=== PATIENT | female | born 1970 | race African-American/Black ===

== ENCOUNTER 2016-10-06 17:58 | Emergency (ER) | payer OTHER ==
[~2016-10-06] VITALS: Ht 162.6 cm; Wt 113.6 kg
[~2016-10-06 17:58] MED LIST: HYDR-2766 PO; IBUP200T43 PO; LOSA1TAB17 PO
[2016-10-06 18:12] VITALS: BP 143/76
[2016-10-06] MEDS ORDERED: 0.9 % SODIUM CHLORIDE 10 ML DISP.SYRIN. IV PRN (18:30)
--- NOTE | 2016-10-06 18:37 | EKG ---
[address] [address] Test Date: 2016-10-06 Test Time: 18:34:01 Pat Name: JAYDON REID Department: Room: Gender: F [employer]: : 1970 Requested By: ALEXANDRA BARKER Order Number: [id number] Reading MD: Orville Zuñiga Measurements Intervals [place] Rate: 105 P: 46 [place]: 156 QRS: 13 QRSD: 76 T: 5 QT: 334 QTc: 445 Interpretive Statements SINUS TACHYCARDIA Electronically Signed On 10-15-2016 8:46:16 CDT by Orville Zuñiga
[2016-10-06] MEDS ORDERED: IV NORMAL SALINE 1,000ML 1,000 ML IV SCH (18:45)
[2016-10-06] MEDS ORDERED: ASPIRIN 81 MG TAB.CHEW PO ONE (18:45)
[2016-10-06] MEDS ORDERED: IOHEXOL 300 MG/ML 75 ML VIAL. IV ONE (19:15)
[2016-10-06] MEDS ORDERED: CONTRAST GIVEN MC PRN (19:15)
[2016-10-06 19:29] LABS: BASO % 0 % (0-3); EOS % 0 % (0-3); HEMOGLOBIN 7.3 g/dL (12.0-15.5); LYMPH # 0.7 x10^3/uL (1.0-4.8); LYMPH % 6 % (24-48); MEAN CORPUSCULAR HEMOGLOBIN 32 pg (25-35); MEAN CORPUSCULAR HGB CONC 35 g/dL (31-37); MEAN CORPUSCULAR VOLUME 92 fL (79-100); MONO % 8 % (0-9); NEUT # 10.2 x10^3uL (1.8-7.7); NEUT % 86 % (31-73); PLATELET COUNT 222 x10^3/uL (140-400); RED BLOOD COUNT 2.28 x10^6/uL (3.50-5.40); WHITE BLOOD COUNT 11.9 x10^3/uL (4.0-11.0)
[2016-10-06 19:51] LABS: ALBUMIN 2.5 g/dL (3.4-5.0); ALBUMIN/GLOBULIN RATIO 0.6 (1.0-1.7); ALK PHOS 104 U/L (46-116); ALT (SGPT) 17 U/L (14-59); ANION GAP 8 (6-14); AST (SGOT) 11 U/L (15-37); BLOOD UREA NITROGEN 20 mg/dL (7-20); BUN/CREATININE RATIO 13 (6-20); CALCIUM 8.3 mg/dL (8.5-10.1); CARBON DIOXIDE 31 mmol/L (21-32); CHLORIDE 90 mmol/L (98-107); CREATINE KINASE 16 U/L (26-192); CREATININE 1.5 mg/dL (0.6-1.0); GFR 44.8; GLUCOSE 92 mg/dL (70-99); LIPASE 75 U/L (73-393); MAGNESIUM 1.1 mg/dL (1.8-2.4); POTASSIUM 3.8 mmol/L (3.5-5.1); SODIUM 129 mmol/L (136-145); TOTAL BILIRUBIN 0.3 mg/dL (0.2-1.0); TOTAL PROTEIN 6.7 g/dL (6.4-8.2)
--- NOTE | 2016-10-06 20:08 | PHYS DOC ---
Past History Past Medical History: Cancer Past Surgical History: Cancer Surgery, Other Alcohol Use: None Drug Use: None Adult General Chief Complaint Chief Complaint: MULTIPLE COMPLAINTS HPI HPI He is a pleasant 46-year-old female with history of skin cancer diagnosed several years ago requiring local excision to her right foot in both June and July of this year. She is undergone chemotherapy and radiation therapy last dose September 28, 2016 she presents today to the emergency department secondary to shortness of breath. Shortness of breath she admits was short- lived lasting. Minutes about 2 hours prior to arrival that has now resolved at this time. Patient has also noted pain in her right extremity which is chronic in nature for her for which she takes MS Jerald she admits this is secondary to the lymph node removal causing chronic lymph edema in her lower leg. She's had no change in her medications she has had no injuries no increased swelling she was worried shortness of breath or something more sinister with her heart. She' s never had heart conditions she is not being treated for any high blood pressure diabetes or other risk factors for CAD. She denies any fevers, chills, missed medications, increase salt intake travel or trauma. She lives at home with family she normally gets her care at [facility] recent CT scan of her chest complete last week. Results from CT scan reviewed by me demonstrate no significant pulmonary medicine. Review of Systems Review of Systems Constitutional: Denies fever or chills [] Eyes: Denies change in visual acuity, redness, or eye pain [] HENT: Denies nasal congestion or sore throat [] Respiratory: Denies cough or shortness of breath [] Cardiovascular: No additional information not addressed in HPI [] GI: Denies abdominal pain, nausea, vomiting, bloody stools or diarrhea [] : Denies dysuria or hematuria [] Musculoskeletal: Denies back pain or joint pain [] Integument: Denies rash or skin lesions [] Neurologic: Denies headache, focal weakness or sensory changes [] Endocrine: Denies polyuria or polydipsia [] Current Medications Current Medications Current Medications Medications (Trade) Dose Ordered Sig/Jennie Start Time Stop Time Status Last Admin Dose Admin Aspirin (Children'S Aspirin) 324 mg 1X ONCE 10/06/16 18:45 10/06/16 18:46 DC Info (Do NOT chart on this entry -- for MONITORING) 1 each PRN DAILY PRN 10/06/16 19:15 10/08/16 19:14 Iohexol (Omnipaque 300 Mg/ml) 75 ml 1X ONCE 10/06/16 19:15 10/06/16 19:16 DC Sodium Chloride (Normal Saline Flush) 10 ml QSHIFT PRN 10/06/16 18:30 Allergies Allergies Allergies Coded Allergies Type Severity Reaction Last Updated Verified amoxicillin Allergy Intermediate 08/03/16 Yes clavulanic acid Allergy Intermediate 08/03/16 Yes Physical Exam Physical Exam Constitutional: Well developed, well nourished, no acute distress, non-toxic appearance. [] HENT: Normocephalic, atraumatic, bilateral external ears normal, oropharynx moist, no oral exudates, nose normal. [] Eyes: PERRLA, EOMI, conjunctiva normal, no discharge. [] Neck: Normal range of motion, no tenderness, supple, no stridor. [] Cardiovascular:Heart rate regular rhythm, no murmur [] Lungs & Thorax: Bilateral breath sounds clear to auscultation [] Abdomen: Bowel sounds normal, soft, no tenderness, no masses, no pulsatile masses. [] Skin: Warm, dry, no erythema, no rash. [] Back: No tenderness, no CVA tenderness. [] Extremities: No tenderness, no cyanosis, no clubbing, ROM intact, no edema. [] Neurologic: Alert and oriented X 3, normal motor function, normal sensory function, no focal deficits noted. [] Psychologic: Affect normal, judgement normal, mood normal. [] Current Patient Data Vital Signs Vital Signs Date Time Temp Pulse Resp B/P (MAP) Pulse Ox O2 Delivery O2 Flow Rate FiO2 10/06/16 18:12 98.8 93 20 97 Room Air Lab Results Laboratory Tests Test 10/06/16 19:16 White Blood Count 11.9 x10^3/uL (4.0-11.0) H Red Blood Count 2.28 x10^6/uL (3.50-5.40) L Hemoglobin 7.3 g/dL (12.0-15.5) L Hematocrit 21.0 % (36.0-47.0) L Mean Corpuscular Volume 92 fL (79-100) Mean Corpuscular Hemoglobin 32 pg (25-35) Mean Corpuscular Hemoglobin Concent 35 g/dL (31-37) Red Cell Distribution Width 20.0 % (11.5-14.5) H Platelet Count 222 x10^3/uL (140-400) Neutrophils (%) (Auto) 86 % (31-73) H Lymphocytes (%) (Auto) 6 % (24-48) L Monocytes (%) (Auto) 8 % (0-9) Eosinophils (%) (Auto) 0 % (0-3) Basophils (%) (Auto) 0 % (0-3) Neutrophils # (Auto) 10.2 x10^3uL (1.8-7.7) H Lymphocytes # (Auto) 0.7 x10^3/uL (1.0-4.8) L Monocytes # (Auto) 1.0 x10^3/uL (0.0-1.1) Eosinophils # (Auto) 0.0 x10^3/uL (0.0-0.7) Basophils # (Auto) 0.0 x10^3/uL (0.0-0.2) Platelet Estimate Pending Troponin I Quantitative < 0.017 ng/mL (0-0.055) EKG EKG [] Radiology/Procedures Radiology/Procedures Chest x-ray completed 18310/06/[address] Barker demonstrates cardiac shadow upper limits of normal Port-A-Cath noted with ending in the right atrium no evidence of any infiltrates noted sided pericardial effusion as Cardec silhouette is within normal limits no evidence of pleural effusion notes of infiltrate. otherwise unchanged chest x-ray from February 2016. [] Course & Med Decision Making Course & Med Decision Making Pertinent Labs and Imaging studies reviewed. (See chart for details) [A she is a pleasant 46-year-old female with history anxiety shortness of breath with a history of cancer on appropriate anticoagulation therapy. She admits to numbness to medication doses which is worried about her heart. EKG timed 6:34 PM date 10/06/[address] Barker demonstrates sinus tachycardia with a heart rate of [address] segment elevation or T-wave changes consistent with acute coronary ischemia no S1Q3 T3 patient's EKG otherwise unremarkable. Patient daughter and I talked about possible admission to the hospital secondary to duration of symptoms although she's only had 2 hours of time between her shortness of breath and this. It's not adequate to completely rule out the injury of the heart. She likely has some heart disease but at this point I cannot tell her that she doesn't have heart injury. She would prefer to go home and follow up with her primary care doctor. At this point discussed her labs disposition and reasons to return. Diagnoses include cute coronary syndrome, pneumonia, pleural effusion, pericardial effusion, pulmonary infarct, chest wall fracture, metastatic bone lesions, hyper calcium, pneumothorax, mediastinitis, pneumonitis, Impression dyspnea of unclear etiology now resolved disposition and follow-up, primary care doctor Saturday morning return for any increasing symptoms short of breath chest pain. Family and I discussed results and understand limitation of not completing her workup here in the emergency department] patient will take risk as she feels markedly more comfortable with her symptoms resolved. Again pulmonalis was considered patient was very reluctant to have PowerPort injected again with contrast as she is on a less and reported a CAT scan negative last week at [facility] but I was not able to define patient's x-ray although the patient assured me that this was completed. I reviewed all vital signs, nursing notes prior to disposition. Dragon Disclaimer Dragon Disclaimer This chart was dictated in whole or in part using Voice Recognition software in a busy, high-work load, and often noisy Emergency Department environment. It may contain unintended and wholly unrecognized errors or omissions. Departure Departure: Impression: Primary Impression: Dyspnea Additional Impression: Chronic pain Disposition: HOME, SELF-CARE Condition: STABLE Referrals: KONG LEAVITT APRN (PCP) Patient Instructions: Lymphedema, Shortness of Breath Additional Instructions: Please return immediately for any new or increasing symptoms, or if you like to finish her workup here at [facility]. Please follow up with her primary care doctor on Saturday for continued evaluation and management of your skin cancer. Please return if there is anything as we can help with or new symptoms need to be evaluated. Problem Qualifiers ALEXANDRA BARKER MD October 06, 2016 20:08
[2016-10-06 23:03] LABS: % LYMPHS 3 % (24-48); % MONOS 6 % (0-10); % MYELOS 5 % (0-0); % SEGS 86 % (35-66)
[2016-10-06 23:04] LABS: TOXIC GRANULATION PRESENT
[2016-10-06 23:05] LABS: PLT ESTIMATE ADEQUATE (ADEQUATE)
[2016-10-06 23:07] LABS: ANISOCYTOSIS SLIGHT
[2016-10-06 23:08] LABS: POLYCHROMASIA PRESENT
--- NOTE | 2016-10-07 08:59 | RAD ---
Indication chest pain and shortness of breath. A single view of the chest was obtained and is compared to an examination 02/13/2016. The heart and pulmonary vessels are unremarkable. A focal infiltrate is not seen. Significant pleural fluid is not present. Right Port-A-Cath is noted. IMPRESSION: No acute or focal process seen in the chest
== END 2016-10-06 20:10 | disposition home or self-care (01) ==
LOC: ER 17:58
DX: R06.00 Dyspnea, unspecified (principal); G89.29 Other chronic pain; M79.661 Pain in right lower leg; Z88.1 Allergy status to other antibiotic agents
CPT/HCPCS: 36415; 71010; 80053; 82553; 83690; 83735; 83880; 84443; 84484; 85007; 85027; 93005; 99285-25

== ENCOUNTER 2016-11-08 21:02 | Emergency (ER) | payer MEDICARE, OTHER ==
[2016-11-08] MEDS ORDERED: IV NORMAL SALINE 1,000ML 1,000 ML IV ONE (21:45)
[2016-11-08] MEDS ORDERED: fentaNYL PF 100 MCG/2 ML VIAL IV ONE (21:45)
[2016-11-08] MEDS ORDERED: IOHEXOL 300 MG/ML 75 ML VIAL. IV ONE (22:00)
[2016-11-08 22:05] LABS: BASO # 0.1 x10^3/uL (0.0-0.2); BASO % 0 % (0-3); EOS % 0 % (0-3); HEMATOCRIT 26.5 % (36.0-47.0); LYMPH # 0.9 x10^3/uL (1.0-4.8); LYMPH % 5 % (24-48); MEAN CORPUSCULAR HEMOGLOBIN 32 pg (25-35); MEAN CORPUSCULAR HGB CONC 34 g/dL (31-37); MEAN CORPUSCULAR VOLUME 93 fL (79-100); MONO # 1.3 x10^3/uL (0.0-1.1); MONO % 8 % (0-9); NEUT % 87 % (31-73); PLATELET COUNT 325 x10^3/uL (140-400); RED BLOOD COUNT 2.86 x10^6/uL (3.50-5.40); RED CELL DISTRIBUTION WIDTH 20.2 % (11.5-14.5); WHITE BLOOD COUNT 16.2 x10^3/uL (4.0-11.0)
[2016-11-08] MEDS ORDERED: ONDANSETRON PF 4 MG/2 ML VIAL. ONE (22:17)
[2016-11-08 22:22] LABS: ALBUMIN 2.2 g/dL (3.4-5.0); ALBUMIN/GLOBULIN RATIO 0.5 (1.0-1.7); CREATININE 1.8 mg/dL (0.6-1.0); GFR 36.3; TOTAL BILIRUBIN 0.6 mg/dL (0.2-1.0)
[2016-11-08 22:24] LABS: CALCIUM 12.9 mg/dL (8.5-10.1)
[2016-11-08 22:30] LABS: % BANDS 19 % (0-9); % LYMPHS 3 % (24-48); % MONOS 4 % (0-10); % MYELOS 4 % (0-0); % SEGS 70 % (35-66)
[2016-11-08 22:31] LABS: PLT ESTIMATE ADEQUATE (ADEQUATE)
[2016-11-08 22:34] LABS: ANISOCYTOSIS SLIGHT
[2016-11-08 22:35] LABS: POLYCHROMASIA PRESENT
[2016-11-08] MEDS ORDERED: ONDANSETRON PF 4 MG/2 ML VIAL. IV ONE (23:15)
[2016-11-08] MEDS ORDERED: HYDROmorphone PF 1 MG/ML DISP.SYRIN ONE (23:24)
[2016-11-08] MEDS ORDERED: HYDROmorphone PF 1 MG/ML DISP.SYRIN IV ONE (23:30)
--- NOTE | 2016-11-09 00:02 | PHYS DOC ---
Past History Past Medical History: Cancer Past Surgical History: Cancer Surgery, Other Alcohol Use: None Drug Use: None Adult General Chief Complaint Chief Complaint: ABDOMINAL PAIN HPI HPI Patient is a 46 year old F who presents with abdominal pain for the past day. Patient states that she has nausea/vomiting and is vomiting feces. She has a history of abdominal cancer with lymph node removal. She denies any fevers. Patient states she is not had a bowel movement in over 2 weeks. She denies any chest pain or shortness of breath. Patient has no other complaints. Pertinent exam findings: Generalized abdominal tenderness palpation with no focal rebound tenderness, decreased bowel sounds in all 4 quadrants ED course: Patient was seen and examined CBC, CMP, UA, lipase, CT scan abdomen and pelvis, 1 L normal saline, pain medication were ordered 0127: Updated patient on CT results of a small bowel obstruction and a right psoas muscle abscess and the need to place NG tube and place her on antibiotics and admitted to [facility] 0130: Discussed CC/HP/PMH with Dr. Escobar and recommends admission and NG tube placement wants to be on consult 0139: Discussed CC/HP/PMH with Dr. Lee and recommends admit 0144: 2 g of vancomycin and 1 g of ertapenem were started in the emergency room and blood cultures were drawn prior to the initiation of antibiotics [] Pertinent results: Lactic acid 1.[address] abdomen and pelvis with contrast IMPRESSION: New 2.8 x 2.6 cm soft tissue process posteriorly at the right lung base which may represent some consolidated infiltrate however small mass cannot be excluded. Abnormal heterogeneous soft tissue density involving the distal right psoas muscle and iliopsoas muscle possibly representing abscess but progressed from previous examination now encroaching on the right ureter causing obstructive uropathy at the right kidney. Small bowel dilatation with obstruction down to the distal ileum. Electronically signed by: Brooke Shaw MD (11/09/2016 1:16 AM) MDM: After reviewing the chart, CC/HPI/PMH, physical exam, [lab results], [ radiological results], I believe the patient has acute small bowel obstruction and a right psoas muscle abscess. An NG tube placed and the patient be placed on antibiotics and transferred to [facility] for admission to the hospitalist with surgery on consult. Review of Systems Review of Systems GEN: Denies fevers, chills, sweats HEENT: Denies blurred vision, sore throat CV: Denies chest pain RESP: Denies shortness of air, cough GI: Abdominal pain NEURO: Denies confusion, dizziness MSK: Denies weakness, joint pain/swelling Current Medications Current Medications Current Medications Medications (Trade) Dose Ordered Sig/Jennie Start Time Stop Time Status Last Admin Dose Admin Fentanyl Citrate (Fentanyl 2ml Vial) 50 mcg 1X ONCE 11/08/16 21:45 11/08/16 21:46 DC 11/08/16 22:05 50 MCG Hydromorphone HCl (Dilaudid) 1 mg STK-MED ONCE 11/08/16 23:24 11/08/16 23:25 DC Iohexol (Omnipaque 300 Mg/ml) 75 ml 1X ONCE 11/08/16 22:00 11/08/16 22:01 DC 11/08/16 22:59 75 ML Ondansetron HCl (Zofran) 4 mg 1X ONCE 11/08/16 23:15 11/08/16 23:24 DC 11/08/16 22:19 4 MG Sodium Chloride 1,000 ml @ 1,000 mls/hr 1X ONCE 11/08/16 21:45 11/08/16 22:45 DC 11/08/16 22:05 1,000 MLS/HR Allergies Allergies Allergies Coded Allergies Type Severity Reaction Last Updated Verified amoxicillin Allergy Intermediate 08/03/16 Yes clavulanic acid Allergy Intermediate 08/03/16 Yes Physical Exam Physical Exam GEN.: No apparent distress. Alert and oriented. HEENT: Head is normocephalic, atraumatic NECK: Supple. LUNGS: CTAB. HEART: RRR, S1, S2 present. Peripheral pulses intact ABDOMEN: Soft, generalized abdominal tenderness to palpation without any focal rebound tenderness. Decreased bowel sounds in all 4 quadrants EXTREMITIES: Without any cyanosis. NEUROLOGIC: Normal speech, normal tone PSYCHIATRIC: Normal affect, normal mood. SKIN: No ulcerations Current Patient Data Vital Signs Vital Signs Date Time Temp Pulse Resp B/P (MAP) Pulse Ox O2 Delivery O2 Flow Rate FiO2 11/08/16 22:05 18 11/08/16 21:06 99.0 120 97 Room Air Lab Results Laboratory Tests Test 11/08/16 21:49 White Blood Count 16.2 x10^3/uL (4.0-11.0) H Red Blood Count 2.86 x10^6/uL (3.50-5.40) L Hemoglobin 9.0 g/dL (12.0-15.5) L Hematocrit 26.5 % (36.0-47.0) L Mean Corpuscular Volume 93 fL (79-100) Mean Corpuscular Hemoglobin 32 pg (25-35) Mean Corpuscular Hemoglobin Concent 34 g/dL (31-37) Red Cell Distribution Width 20.2 % (11.5-14.5) H Platelet Count 325 x10^3/uL (140-400) Neutrophils (%) (Auto) 87 % (31-73) H Lymphocytes (%) (Auto) 5 % (24-48) L Monocytes (%) (Auto) 8 % (0-9) Eosinophils (%) (Auto) 0 % (0-3) Basophils (%) (Auto) 0 % (0-3) Neutrophils # (Auto) 14.0 x10^3uL (1.8-7.7) H Lymphocytes # (Auto) 0.9 x10^3/uL (1.0-4.8) L Monocytes # (Auto) 1.3 x10^3/uL (0.0-1.1) H Eosinophils # (Auto) 0.0 x10^3/uL (0.0-0.7) Basophils # (Auto) 0.1 x10^3/uL (0.0-0.2) Segmented Neutrophils % 70 % (35-66) H Band Neutrophils % 19 % (0-9) H Lymphocytes % 3 % (24-48) L Monocytes % 4 % (0-10) Myelocytes % 4 % (0-0) H Platelet Estimate Adequate (ADEQUATE) Polychromasia Present Anisocytosis Slight Sodium Level 129 mmol/L (136-145) L Potassium Level 4.0 mmol/L (3.5-5.1) Chloride Level 85 mmol/L (98-107) L Carbon Dioxide Level 38 mmol/L (21-32) H Anion Gap 6 (6-14) Blood Urea Nitrogen 35 mg/dL (7-20) H Creatinine 1.8 mg/dL (0.6-1.0) H Estimated GFR (Cockcroft-Gault) 36.3 BUN/Creatinine Ratio 19 (6-20) Glucose Level 109 mg/dL (70-99) H Lactic Acid Level 1.6 mmol/L (0.4-2.0) Calcium Level 12.9 mg/dL (8.5-10.1) *H Total Bilirubin 0.6 mg/dL (0.2-1.0) Aspartate Amino Transferase (AST) 17 U/L (15-37) Alanine Aminotransferase (ALT) 16 U/L (14-59) Alkaline Phosphatase 122 U/L (46-116) H Total Protein 7.0 g/dL (6.4-8.2) Albumin 2.2 g/dL (3.4-5.0) L Albumin/Globulin Ratio 0.5 (1.0-1.7) L Lipase 59 U/L (73-393) L EKG EKG [] Radiology/Procedures Radiology/Procedures CT scan of the abdomen and pelvis: IMPRESSION: New 2.8 x 2.6 cm soft tissue process posteriorly at the right lung base which may represent some consolidated infiltrate however small mass cannot be excluded. Abnormal heterogeneous soft tissue density involving the distal right psoas muscle and iliopsoas muscle possibly representing abscess but progressed from previous examination now encroaching on the right ureter causing obstructive uropathy at the right kidney. Small bowel dilatation with obstruction down to the distal ileum. Electronically signed by: Boroke Shaw MD (11/09/2016 1:16 AM)[] Course & Med Decision Making Course & Med Decision Making Pertinent Labs and Imaging studies reviewed. (See chart for details) [] Dragon Disclaimer Dragon Disclaimer This chart was dictated in whole or in part using Voice Recognition software in a busy, high-work load, and often noisy Emergency Department environment. It may contain unintended and wholly unrecognized errors or omissions. Departure Departure: Impression: Primary Impression: SBO (small bowel obstruction) Additional Impression: Psoas abscess, right Disposition: 05 XFER OTHER ([facility]) Admitting Physician: Other (Dr. Lee) Condition: STABLE Referrals: KONG LEAVITT APRN (PCP) Problem Qualifiers ELIAZAR REID DO Nov 09, 2016 00:02
[2016-11-09] MEDS ORDERED: fentaNYL PF 100 MCG/2 ML VIAL IV ONE (01:00)
--- NOTE | 2016-11-09 01:19 | RAD ---
CT abdomen and pelvis with contrast: Reason for examination: Severe right-sided abdominal pain. History of lymphoma and lung cancer Comparison is made to previous study dated 08/05/2016. Helical images were obtained through the abdomen and pelvis with intravenous administration of 60 cc Omnipaque 300. Reconstruction was performed in sagittal and coronal plane. Exposure: One or more of the following individualized dose reduction techniques were utilized for this examination: 1. Automated exposure control 2. Adjustment of the mA and/or kV according to patient size 3. Use of iterative reconstruction technique. There is new pleural based soft tissue density measuring 2.8 x 2.6 cm in size posteriorly at the right lung base which may represent some consolidated infiltrate however a lung mass cannot be excluded. The heart size is normal with no pericardial effusion. No abnormality seen of the liver, spleen, adrenal glands, pancreas or gallbladder. The abdominal aorta and inferior vena cava show no acute abnormalities but there is arteriosclerotic vascular calcification in the aorta. The left kidney shows no renal mass, renal calculus, hydronephrosis or evidence of obstructive uropathy. The right kidney however shows new hydronephrosis with hydroureter down to a large mass involving the right iliac psoas muscle. This may reflect abscess. This shows interval progression since previous examination. Abnormal process in the distal psoas muscle measures approximately 7.4 cm craniocaudally, 8 cm transverse axially and 7.9 cm in AP dimension. At the right iliopsoas muscle, this process measures approximately 10 cm craniocaudally, 7.3 cm transaxially and 5.5 cm in AP dimension. The small intestinal tract is distended down to the distal ileum and would be consistent with small bowel obstruction. No focal abnormalities are seen in the colon. No abnormality seen at the bladder or uterus. IMPRESSION: New 2.8 x 2.6 cm soft tissue process posteriorly at the right lung base which may represent some consolidated infiltrate however small mass cannot be excluded. Abnormal heterogeneous soft tissue density involving the distal right psoas muscle and iliopsoas muscle possibly representing abscess but progressed from previous examination now encroaching on the right ureter causing obstructive uropathy at the right kidney. Small bowel dilatation with obstruction down to the distal ileum. Electronically signed by: Brooke Shaw MD (11/09/2016 1:16 AM)
[2016-11-09] MEDS ORDERED: POTA20TA4 PO (01:35)
[2016-11-09] MEDS ORDERED: PROC10TA PO (01:35)
[2016-11-09] MEDS ORDERED: FURO40TA4 PO (01:35)
[2016-11-09] MEDS ORDERED: IV NORMAL SALINE 50ML 50 ML ONE ×2 (01:39→01:54)
[2016-11-09] MEDS ORDERED: ERTAPENEM 1 GM VIAL IV ONE ×2 (01:40→01:54)
[2016-11-09] MEDS ORDERED: VANCOMYCIN 1 GM VIAL. ONE (01:40)
[2016-11-09] MEDS ORDERED: IV NORMAL SALINE 500ML 500 ML ONE (01:40)
[2016-11-09] MEDS ORDERED: ERTAPENEM 1 GM in IV NORMAL SALINE 50ML 50 ML IV SCH (02:00)
[2016-11-09] MEDS ORDERED: VANCOMYCIN 2 GM in IV NORMAL SALINE 500ML 500 ML IV ONE (02:00)
[2016-11-09 02:15] VITALS: BP 112/68
== END 2016-11-09 03:00 | disposition short-term general hospital (02) ==
LOC: ER 21:02
DX: K56.60 Unspecified intestinal obstruction (principal); K68.12 Psoas muscle abscess; Z88.1 Allergy status to other antibiotic agents
CPT/HCPCS: 36415; 74177; 80053; 83605; 83690; 85007; 85027; 87040; 96361; 96365; 96367; 96375; 96376; 99285; J1170; J1335; J2405; J3010; J3370; J7040; Q9967; J7030